=== PATIENT | female | born 1990 | race Caucasian/White ===

== ENCOUNTER 2023-07-01 06:04 | Emergency (ER) | payer BC, SELFPAY ==
[2023-07-01 06:06] VITALS: BP 146/96
--- NOTE | 2023-07-01 07:38 | ED.GENMED ---
History of Present Illness
General
Chief Complaint: Anxiety
Source: patient
Exam Limitations: none
Time Seen by Provider: 07/01/23 07:08
Travel History
Have you had any contact with someone who has COVID-19?: No
Do you have any symptoms of coronavirus? Fever > 100 degrees, chills, cough, shortness of breath, sore throat, loss of taste or smell, muscle aches, or headache?: No
History of Present Illness
History of Present Illness:
33 year old female otherwise healthy presents with overwhelming stress in life and at work. This cumulated last evening and developed rapid heart rate shakiness occasional shortness of breath. She was unable to sleep all night. At the moment she
feels slightly improved just tired. There is no chest pain. No recent travel or surgery. No headache. No rash. She knows her triggers. No other complaints at this time.
Phy Exam
Physical Exam
Physical Exam:
General: Well-appearing female no acute respiratory distress
HEENT: Normocephalic atraumatic neck is supple
Heart: Regular rate and rhythm no murmurs
Lungs: Clear to auscultation bilaterally no wheezing
Psychiatric exam: Calm cooperative admits to anxiety. Notes a good appetite.
Course
Orders/Labs/Results
Orders:
Orders
07/01/23 07:38
Electrocardiogram (*1) Urgent
Reason for Study: Palpitations
EKG- Treatment ONCE
Vital Signs
Initial and Last Documented VS:
Initial Vital Signs
Temp Pulse Resp BP Pulse Ox
98 F 102 22 146/96 100
07/01/23 06:06 07/01/23 06:06 07/01/23 06:06 07/01/23 06:06 07/01/23 06:06
Last Documented Vital Signs
Temp Pulse Resp BP Pulse Ox
98 F 102 22 146/96 100
07/01/23 06:06 07/01/23 06:06 07/01/23 06:06 07/01/23 06:06 07/01/23 06:06
MDM/Problems Addressed
Differential Diagnosis Includes:
Patient had overwhelming stress and inability to sleep last night. Now feeling better. She feels as though these symptoms are created by stress at work and at life. EKG pending. Discussed options of SSRI versus benzodiazepine as options. At
this point patient declined both of these which I think is reasonable. Also discussed evaluating electrolytes and thyroid given but patient also declined this which is reasonable as well. EKG is within normal limits anticipate discharge with
follow-up with family doctor
*Critical Care Note
Total Time (30-74mins, 75-104mins- exclusive of procedures): Not Applicable
Update Note
Update Note:
EKG shows sinus rhythm with a rate of 77 no ischemic changes. Patient remained stable and comfortable here. No indication for any further intervention. Recommend follow-up with family doctor stable for discharge
ED Attending Note
-
Portions of this chart may have been created with voice recognition software.� Occasional wrong word or��sound alike� substitutions may have occurred due to the inherent limitations of voice recognition software.
Discharge Plan
Departure
Patient Disposition: Home (Routine Discharge)
Date of Disposition: 07/01/23
Time of Disposition: 07:56
Patient with high blood pressure during this ER visit?: No
Discharge Problem:
Panic attack
Instructions: Anxiety, Adult (DC)
Referrals:
Delmar Camacho MD [Family Provider] -
Stand Alone Forms: Return to Work
Activity Restrictions/Additional Instructions:
Please rest. Return for worsening symptoms otherwise follow-up with family doctor.
Interventions
Interventions:
*Risk Screen - Suicide Last Done: 07/01/23 06:06
*General Assessment Last Done: 07/01/23 06:28
*Neglect/Abuse Screening Last Done: 07/01/23 06:06
ED- Fall Risk Assessment Last Done: 07/01/23 06:28
*ED COVID-19 Vaccine History Last Done: 07/01/23 06:28
ED-Psychological Assessment Last Done: 07/01/23 06:28
[2023-07-01 08:35] VITALS: BP 120/79
[2023-07-01 08:36] VITALS: BP 120/79
== END 2023-07-01 08:37 | disposition home or self-care (01) ==
LOC: EMR 06:04
PROVIDERS: EMERGENCY PHYSICIAN Emergency Medicine; FAMILY PHYSICIAN Family Medicine
DX: F41.0 Panic disorder [episodic paroxysmal anxiety] (principal); R06.02 Shortness of breath; R00.0 Tachycardia, unspecified; G47.00 Insomnia, unspecified; Z73.3 Stress, not elsewhere classified; F41.9 Anxiety disorder, unspecified
CPT/HCPCS: 99283; 93005